=== PATIENT | female | born 1940 | race Asian ===

== ENCOUNTER 2016-12-06 10:07 | Emergency (ER) | payer OTHER ==
[2016-12-06 10:15] VITALS: TEMP 98.2; BMI 24.4
--- NOTE | 2016-12-06 10:41 | PDOC ---
History of Present Illness <Prince Quinn - Last Filed: 12/06/16 13:04> - General History Source: Patient Exam Limitations: No Limitations - History of Present Illness Initial Comments: 12/06/16 10:48 The patient is a 76 year old female with no significant PMH who presents to the emergency department with a headache and facial droop beginning approximately yesterday morning. The patient reports being unable to drink and that her left eye does not close fully. The patient denies chest pain, shortness of breath, and dizziness. Denies fever, chills, nausea, vomit, diarrhea and constipation. Denies dysuria, frequency, urgency and hematuria. Allergies: NKA Social history: No reported cigarette, alcohol, or drug use. <Bryan Ray - Last Filed: 12/06/16 18:04> - General Chief Complaint: Facial Droop Stated Complaint: FACIAL DROOP Time Seen by Provider: 12/06/16 10:30 Past History - Past Medical History HTN: Yes - Psycho/Social/Smoking Cessation Hx Anxiety: No Suicidal Ideation: No Smoking History: Never smoked Have you smoked in the past 12 months: No Information on smoking cessation initiated: No Hx Alcohol Use: No Drug/Substance Use Hx: No Substance Use Type: None <Prince Quinn - Last Filed: 12/06/16 13:04> <Bryan Ray - Last Filed: 12/06/16 18:04> - Past Medical History Allergies/Adverse Reactions: Allergies Allergy/AdvReac Type Severity Reaction Status Date / Time No Known Allergies Allergy Verified 12/06/16 10:13 Home Medications: Ambulatory Orders Methylprednisolone [Medrol Dose Reddy] 4 mg PO ASDIR #21 tablet 12/06/16 Oxycodone HCl/Acetaminophen [Oxycodone-Acetaminophen 5-325] 1 each PO PRN PRN Peg 400/Hypromellose/Glycerin [Artificial Tears Drops] 15 ml OP PRN #15 ml 12/06 Review of Systems - Review of Systems Comments:: 12/06/16 10:49 GENERAL/CONSTITUTIONAL: No fever or chills. No weakness. HEAD, EYES, EARS, NOSE AND THROAT: (+) Left eye does not completely close. No ear pain or discharge. No sore throat. CARDIOVASCULAR: No chest pain or shortness of breath. RESPIRATORY: No cough, wheezing, or hemoptysis. GASTROINTESTINAL: No nausea, vomiting, diarrhea or constipation. GENITOURINARY: No dysuria, frequency, or change in urination. MUSCULOSKELETAL: No joint or muscle swelling or pain. No neck or back pain. SKIN: No rash NEUROLOGIC: (+) Headache. No vertigo, loss of consciousness, or change in strength/sensation. ENDOCRINE: No increased thirst. No abnormal weight change. HEMATOLOGIC/LYMPHATIC: No anemia, easy bleeding, or history of blood clots. ALLERGIC/IMMUNOLOGIC: No hives or skin allergy. <Bryan Ray - Last Filed: 12/06/16 18:04> *Physical Exam - Vital Signs Last Vital Signs Temp Pulse Resp BP Pulse Ox 98.2 F 75 20 131/77 98 12/06/16 10:13 12/06/16 10:13 12/06/16 10:13 12/06/16 10:13 12/06/16 10:13 <Prince Quinn - Last Filed: 12/06/16 13:04> - Vital Signs Last Vital Signs Temp Pulse Resp BP Pulse Ox 98.2 F 75 20 131/77 98 12/06/16 10:13 12/06/16 10:13 12/06/16 10:13 12/06/16 10:13 12/06/16 10:13 - Physical Exam Comments: 12/06/16 10:49 GENERAL: Awake, alert, and fully oriented, in no acute distress HEAD: No signs of trauma EYES: (+) Left extra-ocular movements compromised. PERRLA, Right EOMI, sclera anicteric, conjunctiva clear ENT: Auricles normal inspection, hearing grossly normal, nares patent, oropharynx clear without exudates. Moist mucosa NECK: Normal ROM, supple, no lymphadenopathy, JVD, or masses LUNGS: Breath sounds equal, clear to auscultation bilaterally. No wheezes, and no crackles HEART: Regular rate and rhythm, normal S1 and S2, no murmurs, rubs or gallops ABDOMEN: Soft, nontender, normoactive bowel sounds. No guarding, no rebound. No masses EXTREMITIES: Normal range of motion, no edema. No clubbing or cyanosis. No cords, erythema, or tenderness. NEUROLOGICAL:(+) Issue with cranial nerve 7 innervating the left side of face. Cranial nerves II-, VIII-XII grossly intact. SKIN: Warm, Dry, normal turgor, no rashes or lesions noted. <Bryan Ray - Last Filed: 12/06/16 18:04> ED Treatment Course - RADIOLOGY Radiology Studies Ordered: Category Date Time Status HEAD CT WITHOUT CONTRAST [CT] Stat CT Scan 12/06/16 10:34 Ordered <Prince Quinn - Last Filed: 12/06/16 13:04> *DC/Admit/Observation/Transfer - Discharge Dispostion Admit: No - Attestations Physician Attestion: 12/06/16 10:38 I, Dr. Prince Quinn, attest that this document has been prepared under my direction and personally reviewed by me in its entirety. I further attest, that it accurately reflects all work, treatment, procedures and medical decision -making performed by me. <Prince Quinn - Last Filed: 12/06/16 13:04> - Attestations Scribe Attestion: 12/06/16 10:49 Documentation prepared by Bryan Ray, acting as emergency medical service manager for Prince Quinn DO. <Bryan Ray - Last Filed: 12/06/16 18:04> Diagnosis at time of Disposition: Perla's palsy - Discharge Dispostion Disposition: HOME Condition at time of disposition: Unchanged/Unknown - Prescriptions Prescriptions: Peg 400/Hypromellose/Glycerin [Artificial Tears Drops] 15 ml OP PRN #15 ml Methylprednisolone [Medrol Dose Reddy] 4 mg PO ASDIR #21 tablet - Referrals Referrals: Migel Mercado MD [Staff Physician] - Kodi Valencia MD [Staff Physician] - - Patient Instructions Printed Discharge Instructions: DI for Perla's Palsy Additional Instructions: Mrs Liriano - So sorry this has happened for you. It will go away but I need you to see two specialists as soon as you can, Dr. Mercado who is a Neurologist and Dr. Valencia who is an ophthalomologist. Return to us if you have any problems. Don't forget to patch your eye at night. Best- Dr. Prince Quinn
[2016-12-06 12:27] VITALS: BP 125/73; PULSE 74
[2016-12-06] MEDS ORDERED: ONDANSETRON *ODT* 4 MG TABLET ONE (12:43)
[2016-12-06] MEDS ORDERED: ONDANSETRON *ODT* 4 MG TABLET SL ONE (13:03)
== END 2016-12-06 13:14 | disposition home or self-care (01) ==
LOC: JER 10:07
DX: G51.0 Bell's palsy (principal); I10 Essential (primary) hypertension
CPT/HCPCS: 36415; 70450-TC; 86618; 99283-25

== ENCOUNTER 2016-12-09 14:47 | Emergency (ER) | payer OTHER ==
[2016-12-09 14:53] VITALS: BMI 24.4
[2016-12-09] MEDS ORDERED: METOCLOPRAMIDE HCL 10 MG TABLET (FP) PO ONE ×2 (16:22→16:36)
[2016-12-09] MEDS ORDERED: NAPROXEN 500 MG TABLET (FP) PO ONE (16:22)
--- NOTE | 2016-12-09 16:31 | PDOC ---
History of Present Illness - General Chief Complaint: Headache Stated Complaint: REVISIT Time Seen by Provider: 12/09/16 15:49 - History of Present Illness Initial Comments: 12/09/16 16:32 Patient is a 76 year old female with a recent diagnosis of Perla's palsy who presents with concerns for headache. She was recently scene in the ED 4 days ago and diagnosed with a Perla's palsy. Since that time she has had intermittent left sided headaches with associated photophobia that worsens when she takes her prescribed prednisone for the Perla's palsy. She had a normal head CT at her last visit 4 days ago. She denies any phonophobia, numbness or weakness in her extremities, SOB, chest pain, abdominal pain or changes with urination or bowel movements. Past History - Past Medical History Allergies/Adverse Reactions: Allergies Allergy/AdvReac Type Severity Reaction Status Date / Time No Known Allergies Allergy Verified 12/09/16 14:53 Home Medications: Ambulatory Orders Methylprednisolone [Medrol Dose Reddy] 4 mg PO ASDIR #21 tablet 12/06/16 Naproxen [Naprosyn -] 500 mg PO BID PRN #14 tablet 12/09/16 Peg 400/Hypromellose/Glycerin [Artificial Tears Drops] 15 ml OP PRN #15 ml 12/09 HTN: Yes Other medical history: BELLS PALSY - Psycho/Social/Smoking Cessation Hx Anxiety: No Suicidal Ideation: No Smoking History: Never smoked Have you smoked in the past 12 months: No Hx Alcohol Use: No Drug/Substance Use Hx: No Substance Use Type: None Review of Systems - Review of Systems Constitutional: No: Chills, Fever HEENTM: No: Recent change in vision, Double Vision Respiratory: No: Cough, Shortness of Breath Cardiac (ROS): No: Chest Pain, Lightheadedness, Palpitations ABD/GI: Yes: Nausea. No: Constipated, Diarrhea, Vomiting : No: Burning, Dysuria Neurological: Yes: Headache. No: Numbness, Tingling, Weakness *Physical Exam - Vital Signs Last Vital Signs Temp Pulse Resp BP Pulse Ox 97.9 F 89 18 157/89 96 12/09/16 14:51 12/09/16 14:51 12/09/16 14:51 12/09/16 14:51 12/09/16 14:51 - Physical Exam Comments: 12/09/16 16:40 General Appearance: Nourished. No Apparent Distress HEENT: EOMI, BRENDA. No Pharyngeal Erythema, Tonsillar Exudate, Tonsillar Erythema Respiratory/Chest: Lungs Clear, Normal Breath Sounds. No Crackles, Rales, Rhonchi, Wheezing Cardiovascular: Regular Rhythm, Regular Rate. No Murmur, Gallop/S3, Gallop/S4 Gastrointestinal/Abdominal: Normal Bowel Sounds, Soft. No Guarding, Rebound, Tenderness Extremity: Normal Capillary Refill Integumentary:Normal Color, Dry, Warm Neurologic: Fully Oriented, Alert, Normal Mood/Affect, Normal Response, Motor Strength 5/5, Facial Droop. Isolated Cranial nerve VII palsy on the left side. Other Cranial Nerves Intact Medical Decision Making - Medical Decision Making 12/09/16 16:41 Patient is a 76 year old female with a recent diagnosis of Perla's palsy who presents with concerns for headache. Given her history of intermittent left sided headache with a normal CT head 4 days ago with associated photophobia, it is likely her symptoms are due to a migraine headache. We will treat her with naproxen and reglan and reevaluate. 12/09/16 17:35 Patient reports improvement in her symptoms and is requesting discharge. We feel comfortable discharging the patient at this time. We will send her home with a prescription for Naproxen. We discussed the plan with the patient and she voiced understanding and is agreeable with the plan. She has neurology follow up already scheduled. *DC/Admit/Observation/Transfer Diagnosis at time of Disposition: Headache Qualifiers: Headache type: unspecified Headache chronicity pattern: unspecified pattern Intractability: not intractable Qualified Code(s): R51 - Headache - Discharge Dispostion Disposition: HOME Condition at time of disposition: Improved Admit: No - Prescriptions Prescriptions: Peg 400/Hypromellose/Glycerin [Artificial Tears Drops] 15 ml OP PRN #15 ml Naproxen [Naprosyn -] 500 mg PO BID PRN #14 tablet PRN Reason: Headache - Referrals Referrals: Maximiliano Barlow MD [Primary Care Provider] - - Patient Instructions Printed Discharge Instructions: DI for Migraine Additional Instructions: Please return to the ER if you experience concerning or worsening symptoms. We have prescribed you naproxen that you can take as need for your headaches up to twice a day. We have also refilled your artificial tears prescription. Please keep your neurology appointment and please follow up with your primary care provider to discuss your ER visit.
[2016-12-09] MEDS ORDERED: NAPROXEN 500 MG TABLET (FP) ONE (16:36)
--- NOTE | 2016-12-09 17:44 | PDOC ---
Attending Attestation - Resident Resident Name: Raffaele Montoya - ED Attending Attestation I have performed the following: I have examined & evaluated the patient, The case was reviewed & discussed with the resident, I agree w/resident's findings & plan, Exceptions are as noted - HPI HPI: 12/09/16 17:39 76-year-old female with no past medical history presents with headache. The patient was here several days ago for left sided facial droop and headache at that time. Had a head CT performed which demonstrate no acute findings and was diagnosed with Perla's palsy. Patient was started on steroids the patient was discharged. However, the patient has had persistent headache left-sided tension- like since then with no improvement of symptoms. Patient did not take any medications but reportedly taking the steroids had exacerbated her headache. Denies any other neurological deficits. Denies any numbness or weakness in the upper lower extremiities. Denies worst headache of life. Denies thunderclap headache. - Physicial Exam PE: 12/09/16 17:41 GENERAL: Awake, alert, and fully oriented, in no acute distress. HEAD: No signs of trauma EYES: PERRLA, EOMI, sclera anicteric, conjunctiva clear ENT: Auricles normal inspection, hearing grossly normal, nares patent, oropharynx clear without exudates. TMs clear bilaterally. NECK: Normal ROM, supple, no lymphadenopathy, JVD, or masses LUNGS: Breath sounds equal, clear to auscultation bilaterally. No wheezes, and no crackles HEART: Regular rate and rhythm, normal S1 and S2, no murmurs, rubs or gallops ABDOMEN: Soft, nontender, normoactive bowel sounds. No guarding, no rebound. No masses EXTREMITIES: Normal range of motion, no edema. No clubbing or cyanosis. No cords, erythema, or tenderness NEUROLOGICAL: Normal speech, normal gait. 5/5 strength upper and lower extremities. Sensation intact. Left sided facial droop. Unable to wrinkle left forehead. SKIN: Warm, Dry, normal turgor, no rashes or lesions noted. - Medical Decision Making 12/09/16 17:49 Vital Signs Temp Pulse Resp BP Pulse Ox 97.9 F 89 18 157/89 96 12/09/16 14:51 12/09/16 14:51 12/09/16 14:51 12/09/16 14:51 12/09/16 14:51 This is a persistent headache the patient continued to have since her Perla's palsy. She is neurologically intact other than her Perla's palsy. Patient was given a dose of Reglan and Motrin with significant improvement of headache. The patient had a recent negative head CT. I feel that the patient is safe to be discharged. She has a neurology appointment coming up soon. Return precautions given including any new neurological deficits or uncontrollable pain. He shows diagnosis: Tension Headache.
[2016-12-09 17:50] VITALS: BP 160/84; PULSE 75; TEMP 98.1
== END 2016-12-09 17:50 | disposition home or self-care (01) ==
LOC: JER 14:47
DX: R51 Headache (principal); I10 Essential (primary) hypertension
CPT/HCPCS: 99283-25